=== PATIENT | female | born 1965 | race Two or more races ===

== ENCOUNTER → 2021-07-09 | Outpatient (CLI) | payer OTHER ==
[~2021-07-09] MED LIST: CONTRAST GIVEN. MC PRN; IOHEXOL 240 MG/ML 50ML VIAL. PO ONE; IOHEXOL 300 MG/ML 100ML VIAL. IV ONE
--- NOTE | 2021-07-09 16:26 | RAD ---
CT of the abdomen and pelvis with contrast 07/09/2021 4:23 PM Indication: Reason: inguinal hernia / Spl. Instructions: omni 300 75ml omni 240 50ml / History: Comparison study: CT of the abdomen and pelvis June 11, 2017 Technique: Multidetector CT imaging of the abdomen and pelvis was performed following the administrat ion of IV contrast. Findings: The partially visualized lung bases demonstrate no acute abnormality. The liver, gallbladder, spleen, bilateral adrenal glands, bilateral kidneys, and pancreas, are grossl y unremarkable. There is no bowel obstruction. No evidence of acute inflammatory change involving vis ualized bowel is identified. Bladder is grossly unremarkable. No free fluid or free air is seen in t he abdomen or pelvis. No acute osseous changes are identified. No inguinal hernia is identified. Impression: 1. No evidence of inguinal hernia is identified. 2. No acute intra-abdominal abnormality CT DOSING PQRS STATEMENT: One or more of the following individualized dose reduction techniques were utilized for this examinat ion: 1. Automated exposure control 2. Adjustment of the mA and/or kV according to patient size 3. Use of iterative reconstruction technique Electronically signed by: Vito Castanon MD (07/09/2021 4:24 PM) [id number]
== END ==
LOC: CT 10:03
PROVIDERS: ATTEND Specialist
DX: K40.90 Unilateral inguinal hernia, without obstruction or gangrene, not specified as recurrent (principal)
CPT/HCPCS: 74177; Q9966; Q9967